=== PATIENT | male | born 1970 | race Caucasian/White ===

== ENCOUNTER 2021-03-14 07:50 | Outpatient (CLI) | payer BC | END 2021-03-14 07:51 | disposition home or self-care (01) | LOC: SCSMRI 07:50 | PROVIDERS: ATTEND Orthopaedic Surgery | DX: M25.372 Other instability, left ankle (principal); M93.972 Osteochondropathy, unspecified, left ankle and foot; R60.0 Localized edema ==

== ENCOUNTER 2021-05-22 09:48 | Outpatient (CLI) | payer BC | END 2021-05-22 09:49 | disposition home or self-care (01) | LOC: BICRAD 09:48 | PROVIDERS: ATTEND Family Medicine | DX: M54.5 Low back pain (principal); K59.00 Constipation, unspecified | CPT/HCPCS: 72100 ==

== ENCOUNTER 2021-08-07 08:20 | Outpatient (CLI) | payer BC | END 2021-08-07 08:21 | disposition home or self-care (01) | LOC: BICMRI 08:20 | PROVIDERS: ATTEND Neurological Surgery | DX: M51.36 Other intervertebral disc degeneration, lumbar region (principal); M47.816 Spondylosis without myelopathy or radiculopathy, lumbar region; M48.061 Spinal stenosis, lumbar region without neurogenic claudication; M48.07 Spinal stenosis, lumbosacral region | CPT/HCPCS: 72148 ==

== ENCOUNTER → 2022-12-18 | Day surgery (SDC) | payer BC ==
[~2022-12-18] MED LIST: Lidocaine Jelly 2% Urojet 10 ML ONE
== END | disposition home or self-care (01) ==
LOC: SDC 13:52
PROVIDERS: ATTEND Internal Medicine Gastroenterology
DX: R13.10 Dysphagia, unspecified (principal)
CPT/HCPCS: J2001